=== PATIENT | female | born 1965 | race Caucasian/White ===

== ENCOUNTER 2017-02-23 18:57 | Emergency (ER) | payer BC ==
--- NOTE | 2017-02-23 19:11 | EDM.PDOC ---
ED HPI GENERAL MEDICAL PROBLEM - General Chief Complaint: General Stated Complaint: possible UTI Time Seen by Provider: 02/23/17 19:10 Source of Information: Reports: Patient History Limitations: Reports: No Limitations - History of Present Illness INITIAL COMMENTS - FREE TEXT/NARRATIVE: This is a 52yo F here for right flank pain and discomfort. She does have some dysuria and frequency. Patient denies any fever but has had chills. She does have nausea. Patient states the symptoms started 1-2 days ago. Duration: Day(s):, Getting Worse Location: Reports: Back Quality: Reports: Ache Severity: Severe Improves with: Reports: None Worsens with: Reports: Movement Associated Symptoms: Reports: Fever/Chills, Nausea/Vomiting - Related Data Allergies Allergy/AdvReac Type Severity Reaction Status Date / Time Penicillins Allergy Hives Verified 01/16/13 09:23 Home Meds: Home Meds Aspirin 325 mg PO DAILY 02/23/17 [History] Spironolactone [Spironolactone] 50 mg PO DAILY 02/23/17 [History] Tretinoin/Emol Cmb9/Skin Cln1 [Tretin-X 0.025% Cream Comb Pck] 1 each TP DAILY 02/23/17 [History] buPROPion [Wellbutrin XL] 300 mg PO BEDTIME 02/23/17 [History] ED ROS GENERAL - Review of Systems Review Of Systems: ROS reveals no pertinent complaints other than HPI. ED EXAM, GENERAL - Physical Exam Exam: See Below Exam Limited By: No Limitations General Appearance: Alert, WD/WN, Moderate Distress Eye Exam: Bilateral Eye: EOMI Ears: Normal External Exam Nose: Normal Inspection Throat/Mouth: Normal Inspection Head: Atraumatic, Normocephalic Neck: Normal Inspection Respiratory/Chest: No Respiratory Distress, Lungs Clear Cardiovascular: Normal Peripheral Pulses GI/Abdominal: Tender, Other (flank pain right sided) Extremities: Normal Inspection Neurological: Alert, Oriented, CN II-XII Intact Course - Vital Signs Last Recorded V/S: Last Vital Signs Temp 36.4 C 02/23/17 19:08 Pulse 88 02/23/17 19:08 Resp 12 02/23/17 19:08 BP 146/80 H 02/23/17 19:08 Pulse Ox 98 02/23/17 19:08 - Orders/Labs/Meds Orders: Active Orders 24 hr Category Date Time Status CULTURE URINE [RM] Stat Lab 02/23/17 19:15 Received Labs: Laboratory Tests 02/23/17 02/23/17 02/23/17 Range/Units 19:15 19:15 19:15 WBC 12.4 H D (4.0-11.0) K/uL RBC 4.35 (3.80-5.80) M/uL Hgb 13.7 (11.5-16.5) g/dL Hct 39.6 (37.0-47.0) % MCV 91 (76-96) fL MCH 31.5 (27.0-32.0) pg MCHC 34.6 (31.0-35.0) g/dL RDW 12.4 (11.0-16.0) % Plt Count 374 (150-500) K/uL MPV 9.7 (6.0-10.0) fL Neut % (Auto) 63.5 (45.0-70.0) % Lymph % (Auto) 23.3 (20.0-40.0) % [place] % (Auto) 10.1 H (3.0-10.0) % Eos % (Auto) 2.8 (1.0-5.0) % Baso % (Auto) 0.3 (0.0-0.5) % Neut # (Auto) 7.88 H (2.00-7.50) K/uL Lymph # (Auto) 2.90 (1.50-4.00) K/uL [place] # (Auto) 1.25 H (0.20-0.80) K/uL Eos # (Auto) 0.35 (0.04-0.40) K/uL Baso # (Auto) 0.04 (0.02-0.10) K/uL Sodium 137 (136-145) mmol/L Potassium 3.7 (3.5-5.1) mmol/L Chloride 103 (98-107) mmol/L Carbon Dioxide 25.0 (21.0-32.0) mmol/L Anion Gap 12.7 (5.0-15.0) mmol/L BUN 7 L D (8-26) mg/dL Creatinine 0.89 (0.55-1.02) mg/dL Est Cr Clr Drug Dosing TNP Estimated GFR (MDRD) > 60 (>60) MLS/MIN BUN/Creatinine Ratio 7.9 (6-25) Glucose 126 H (74-100) mg/dL Calcium 9.0 (8.5-10.1) mg/dL Urine Color Red Urine Appearance Cloudy (CLEAR) Urine pH 6.5 (5.0-8.0) Ur Specific [place] 1.020 (1.003-1.030) Urine Protein >=300 H (NEGATIVE) mg/dL Urine Glucose (UA) Negative (NEGATIVE) mg/dL Urine Ketones Trace H (NEGATIVE) mg/dL Urine Occult Blood Large H (NEGATIVE) Urine Nitrite Positive (NEGATIVE) Urine Bilirubin Small (NEGATIVE) Urine Urobilinogen 1.0 (0.2-1.0) E.U./dL Ur Leukocyte Esterase Large H (NEGATIVE) Urine RBC Packed H /HPF Urine WBC 10-20 H /HPF Ur Squamous Epith Cells Moderate /HPF Urine Bacteria Few /HPF Meds: Medications Discontinued Medications Generic Name Dose Route Start Last Admin Trade Name Lup[place]q PRN Reason Stop Dose Admin Ceftriaxone Sodium 1 gm 02/23/17 19:31 02/23/17 19:35 Rocephin IM 02/23/17 19:32 1 gm ONETIME ONE Administration Ceftriaxone Sodium Confirm 02/23/17 19:39 Rocephin Administered 02/23/17 19:40 Dose 1 gm .ROUTE .STK-MED ONE Ondansetron HCl 4 mg 02/23/17 19:32 02/23/17 19:35 Zofran Odt PO 02/23/17 19:33 4 mg ONETIME ONE Administration Ondansetron HCl Confirm 02/23/17 19:39 Zofran Odt Administered 02/23/17 19:40 Dose 4 mg .ROUTE .STK-MED ONE Departure - Departure Time of Disposition: 20:00 Disposition: Home, Self-Care 01 Condition: Fair Clinical Impression: Pyelonephritis - Discharge Information Instructions: Phenazopyridine tablets, Urinary Tract Infection, Adult, Ciprofloxacin tablets Referrals: PCP,None [Primary Care Provider] - Forms: ED Department Discharge Additional Instructions: Take 1 tablet of pyridium 3 times a day as needed for painful urination. Take 1 tablet of zofran 4mg every 4 to 6 hours as needed for nausea. Take Cipro 1 tablet BID for 3 days for 14 days. Complete all 14 days of Cipro medication, do not stop early. Follow up in clinic or ER if symptoms persist after 2 to 3 days. RTC or ER if symptoms worsen. - My Orders Last 24 Hours: My Active Orders 02/23/17 19:15 CULTURE URINE [] Stat - Assessment/Plan Last 24 Hours: My Active Orders 02/23/17 19:15 CULTURE URINE [] Stat
[2017-02-23 19:25] VITALS: BP 146/80
[2017-02-23] MEDS ORDERED: cefTRIAXone 1 GM Vial IM ONE (19:31)
[2017-02-23] MEDS ORDERED: Ondansetron 4 MG Tab.DIS PO ONE (19:32)
[2017-02-23] MEDS ORDERED: Ondansetron 4 MG Tab.DIS ONE ×2 (19:39→19:45)
[2017-02-23] MEDS ORDERED: cefTRIAXone 1 GM Vial ONE (19:39)
[2017-02-23] MEDS ORDERED: Ciprofloxacin 500 MG Tab ONE (19:45)
[2017-02-23] MEDS ORDERED: Acetaminophen/HYDROcodone 325-5 MG Tab ONE (19:45)
[2017-02-23] MEDS ORDERED: Phenazopyridine 100 MG Tab ONE (19:45)
== END 2017-02-23 19:50 | disposition home or self-care (01) ==
LOC: LB.ED 18:57
DX: N12 Tubulo-interstitial nephritis, not specified as acute or chronic (principal); Z88.0 Allergy status to penicillin; Z79.899 Other long term (current) drug therapy
CPT/HCPCS: 36415; 80048; 81001; 85025; 87086; 87088; 87186; 96372; 99283; A9270; J0696